=== PATIENT | female | born 2000 | race American Indian/Alaskan Native ===

== ENCOUNTER 2021-01-24 18:25 | Inpatient (IN) | payer OTHER ==
[2021-01-24] MEDS ORDERED: CARBOPROST TROMETHAMINE 250 MCG/1 ML INJ IM PRN (19:37)
[2021-01-24] MEDS ORDERED: METHYLERGONOVINE MALEATE 0.2 MG/ML VIAL IM PRN (19:37)
[2021-01-24] MEDS ORDERED: ACETAMINOPHEN 325 MG TAB PO PRN (19:37)
[2021-01-24] MEDS ORDERED: MINERAL OIL 30 ML ORAL LIQD PO PRN (19:37)
[2021-01-24] MEDS ORDERED: LIDOCAINE (2%) 20 MG/1 ML VIAL 20 ML MDV INFILTRATI ONE (19:37)
[2021-01-24] MEDS ORDERED: TERBUTALINE 1 MG/1 ML INJ SUB-Q PRN (19:37)
[2021-01-24] MEDS ORDERED: OXYTOCIN 10 UNIT/1 ML INJ IM PRN (19:37)
[2021-01-24] MEDS ORDERED: miSOPROStol 200 MCG TAB PR PRN (19:37)
[2021-01-24] MEDS ORDERED: fentaNYL 100 MCG/2 ML INJ IV PRN (19:37)
[2021-01-24] MEDS ORDERED: ePHEDrine SULFATE 50 MG/1 ML INJ IV PRN (19:37)
[2021-01-24] MEDS ORDERED: LOPERAMIDE 2 MG CAP PO PRN (19:37)
[2021-01-24] MEDS ORDERED: BUTORPHANOL 2 MG/1 ML INJ IV PRN ×2 (19:37)
[2021-01-24] MEDS ORDERED: AMPICILLIN/NS 2 GM/100 ML 2 GM/100 ML BAG IV ONE (19:37)
[2021-01-24] MEDS ORDERED: LACTATED RINGERS 1,000 ML IV SCH (19:45)
[2021-01-24] MEDS ORDERED: AZITHROMYCIN 250 MG TAB PO ONE (19:51)
--- NOTE | 2021-01-24 19:51 | History and Physical Report ---
History of Present Illness Date of examination: 01/24/21 Chief complaint: Labor History of present illness: EDC Confirmation: 02/14/2021 Past History : 1 Term Births: 0 Premature Births: 0 Living Children: 0 Para: 0 Mult. Births: 0 Prev : 0 Prev. attempt? 0 Aborta: 0 Elect. Ab: 0 Spont. 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 % Sun Exposure: rarely No Dietary Counseling Reason: pn yes Past Medical History Anesthesia Complications: negative Anemia: negative Autoimmune Disorder: negative Bleeding Disorder: negative Blood Transfusions: negative Breast Disease: negative Diabetes: negative Heart Disease: negative Hypertension: negative Hepatitis/Liver Disease: negative Kidney Disease/UTI: negative Neurologic/Epilepsy/Migraines: negative Phlebitis/Varicosities: negative Psychiatric: negative Pulmonary Disease/Asthma: negative Thyroid Disease: negative Hospitalizations: negative Surgery (Non-color developer): negative Abnormal PAP: negative KATERINA Exposure: negative Infertility: negative Uterine Anomaly: negative Uterine Surgery (not C/S): negative Other Gynecologic Problems: negative Social Hx: Patient is single Smoking History: Patient has never smoked. Infection History Hx of STD: + CT HIV Risk Eval: no Hepatitis B Risk Eval: low risk Personal hx. of genital herpes: no Partner hx. of genital herpes: no Rash, Viral, or Febrile illness since last LMP? no Varicella/Chicken Pox Status: Immunized TB Risk: no Genetic History Congenital Heart Defect: Mom: no Dad: unknown Rene Disease: Mom: no Dad: unknown Thalassemia Mom: no Dad: unknown Neural Tube Defect Mom: no Dad: unknown Down's Syndrome Mom: no Dad: unknown Chintan-Sachs Mom: no Dad: unknown Sickle Cell Disease/Trait Mom: yes Dad: unknown Comments: Patient has SCT Hemophilia Mom: no Dad: unknown Muscular Dystrophy Mom: no Dad: unknown Cystic Fibrosis Mom: no Dad: unknown [place] Chorea Mom: no Dad: unknown Mental Retardation Mom: no Dad: unknown Fragile X Mom: no Dad: unknown Other Genetic/Chromosomal Disorder Mom: no Dad: unknown Child w/other defect Mom: no Dad: unknown Enviromental Exposures Xray Exposure: no Medication, drug, or alcohol use since LMP: no Chemical/Other Exposure: no Exposure to Cat Liter: no Hx of Parvovirus (Fifth Disease): no Occupational Exposure to Children: none Active Medications (reviewed today): None Current Allergies (reviewed today): No known allergies Past History Past Medical History: other (see HPI) Past Surgical History: other (see HPI) 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 ) Family/Genetic History: other (see HPI) Social history: single, lives with family - Obstetrical History Expected Date of Delivery: 02/14/21 Actual Gestation: 37 Week(s) 0 Day(s) : 1 Para: 0 Hx # Term Pregnancies: 0 Number of Pregnancies: 0 Spontaneous Abortions: 0 Induced : 0 Number of Living Children: 0 Medications and Allergies Allergies Allergy/AdvReac Type Severity Reaction Status Date / Time No Known Allergies Allergy Verified 01/24/21 19:41 Active Meds: Active Medications Acetaminophen (Acetaminophen 325 Mg Tab) 650 mg PO Q4H PRN PRN Reason: Pain, Mild (1-3) Butorphanol Tartrate (Butorphanol 2 Mg/1 Ml Inj) 1 mg IV Q2H PRN PRN Reason: Pain, Moderate(4-6) LABOR PAIN Butorphanol Tartrate (Butorphanol 2 Mg/1 Ml Inj) 2 mg IV Q2H PRN PRN Reason: Pain , Severe (7-10) Carboprost Tromethamine (Carboprost Tromethamine 250 Mcg/1 Ml Inj) 250 mcg IM ONCE PRN PRN Reason: Uterine Bleeding Ephedrine Sulfate (Ephedrine Sulfate 50 Mg/1 Ml Inj) 10 mg IV Q2M PRN PRN Reason: Hypotension Fentanyl (Fentanyl 100 Mcg/2 Ml Inj) 100 mcg IV Q2H PRN PRN Reason: Pain,Severe (7-10) LABOR PAIN Oxytocin/Sodium Chloride (Pitocin/Ns 30 Unit/500ml) 30 units in 500 mls @ 2 mls/hr IV TITR RANDY; Protocol Lactated Ringer's (Lactated Ringers) 1,000 mls @ 125 mls/hr IV DIRECT RANDY Oxytocin/Sodium Chloride (Pitocin/Ns 30 Unit/500ml) 30 units in 500 mls @ 40 mls/hr IV TITR RANDY; Protocol Ampicillin Sodium (Ampicillin/Ns 1 Gm/50 Ml) 1 gm in 50 mls @ 100 mls/hr IV Q4H RANDY; Protocol Ampicillin Sodium (Ampicillin/Ns 2 Gm/100 Ml) 2 gm in 100 mls @ 100 mls/hr IV ONCE ONE; Protocol Stop: 01/24/21 20:36 Loperamide HCl (Loperamide 2 Mg Cap) 2 mg PO ONCE PRN PRN Reason: give with Hemabate Methylergonovine Maleate (Methylergonovine Maleate 0.2 Mg/Ml Vial) 0.2 mg IM ONCE PRN PRN Reason: Uterine Bleeding Mineral Oil (Mineral Oil 30 Ml Oral Liqd) 30 ml PO QHS PRN PRN Reason: Constipation Misoprostol (Misoprostol 200 Mcg Tab) 800 mcg LA ONCE PRN PRN Reason: Uterine Bleeding Oxytocin (Oxytocin 10 Unit/1 Ml Inj) 10 unit IM ONCE PRN PRN Reason: Uterine Bleeding Terbutaline Sulfate (Terbutaline 1 Mg/1 Ml Inj) 0.25 mg SUB-Q ONCE PRN PRN Reason: Hyperstimulation/Hypertonicity Review of Systems All systems: negative - Vital Signs Vital signs: Vital Signs Pulse Pulse Ox 127 H 97 01/24/21 19:07 01/24/21 19:07 Temp Pulse Resp BP Pulse Ox 99.1 F 109 H 18 143/92 97 01/24/21 19:10 01/24/21 19:32 01/24/21 19:10 01/24/21 19:20 01/24/21 19:32 - Physical Exam Breasts: Positive: normal Cardiovascular: Regular rate Lungs: Positive: Clear to auscultation, Normal air movement Abdomen: Positive: normal appearance, soft Genitourinary (Female): Positive: normal external genitalia, normal perenium Vulva: both: normal Vagina: Positive: normal moisture (SROM - clear flui) Uterus: Positive: normal size, normal contour Anus/Rectum: Positive: normal perianal skin Extremities: Positive: normal Deep Tendon Reflex Grade: Normal +2 - Obstetrical FHR: category 2 Uterine Contraction Monitor Mode: External Cervical Dilatation: 6.5 (per mechanic) Uterine Contraction Pattern: Regular Uterine Tone Measurement Phase: Contraction Uterine Contraction Intensity: Strong/Firm Results Result Diagrams: 01/24/21 19:50 All other labs normal. Assessment and Plan 20y/o @ 37+0 weeks presented in active labor, GBS +, pt desires unmedicated . - Patient Problems (1) Active labor at term Current Visit: Yes Status: Acute Plan to address problem: admission orders in EMR (2) 37 weeks gestation of Current Visit: Yes Status: Acute (3) Chlamydia Current Visit: Yes Status: Acute Plan to address problem: +CT 10/08/2020, RASHARD NEG 11/02, +CT again 12/28/2020 treated 01/02, no RASHARD at time of deliver. Pt states she complete medication. PO abx ordered if time before delivery. (4) GBS (group B Streptococcus carrier), +RV culture, currently Current Visit: Yes Status: Acute Plan to address problem: Ampicillin q4hrs until delivery
[2021-01-24] MEDS ORDERED: OXYTOCIN DRIP 30 UNITS/500 ML BAG IV SCH (20:00)
[2021-01-24 20:05] LABS: Hematocrit 28.6 % (30.3-42.9); Hemoglobin 8.9 gm/dl (10.1-14.3); Mean Corpuscular HGB Conc 31 % (30-34); Platelet Count 267 K/mm3 (140-440); Red Blood Count 4.42 M/mm3 (3.65-5.03); Red Cell Distribution Width 19.9 % (13.2-15.2)
[2021-01-24 20:11] LABS: Mean Corpuscular Volume 65 fl (79-97)
[2021-01-24] MEDS: OXYTOCIN DRIP 30 UNITS/500 ML BAG IV SCH ×2 (20:14→20:50)
--- NOTE | 2021-01-24 20:30 | Procedure Note ---
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 Placenta spontaneously and intact. Bilat periurethral lacs, no repair needed. Fundus firm at umbilicus and locha light. Apgars 8/9. All counts correct, Mother and baby LDR stable. - Infant A at 1 minute: 8 at 5 minutes: 9 Infant Gender: Male ("Tomyir" 6#10)
--- NOTE | 2021-01-24 20:49 | Event Note ---
Date: 01/24/21 reviewed blood pressures since admission all have been elevated 140's-160's/80-90's. while patient has no s/s pre-e, d/t elevated blood pressures will start mag sulfate 2gm/hr and draw Pre-e labs. Pt counseled on potential dx and need for intervention. All questions addressed.
[2021-01-24] MEDS ORDERED: MAGNESIUM HYDROXIDE (MOM) ORAL LIQD UDC PO PRN (21:30)
[2021-01-24] MEDS ORDERED: PROMETHAZINE 25 MG TAB PO PRN (21:30)
[2021-01-24] MEDS ORDERED: diphenhydrAMINE 25 MG CAP PO PRN (21:30)
[2021-01-24] MEDS ORDERED: WITCH HAZEL/ GLYCERIN PAD TP PRN (21:30)
[2021-01-24] MEDS ORDERED: ONDANSETRON 4 MG/2 ML INJ IV PRN (21:30)
[2021-01-24] MEDS ORDERED: BENZOCAINE/MENTHOL 20/0.5% TOP SPRAY 56 GM TP PRN (21:30)
[2021-01-24] MEDS ORDERED: LANOLIN/ZINC/DIMETHICONE (LANSINOH) 7 GM TP PRN (21:30)
[2021-01-24] MEDS ORDERED: MAGNESIUM SULFATE 4 GM/100 ML BAG IV ONE (21:34)
[2021-01-24] MEDS ORDERED: DOCUSATE SODIUM 100 MG CAP PO SCH (22:00)
[2021-01-24] MEDS ORDERED: IBUPROFEN 800 MG TAB PO SCH (22:00)
[2021-01-24] MEDS ORDERED: LACTATED RINGERS 1,000 ML ONE (22:08)
[2021-01-24] MEDS: MAGNESIUM SULFATE 40GM/1000ML 40 GM/1,000 ML BAG IV SCH (22:27)
[2021-01-24] MEDS ORDERED: AMPICILLIN/NS 1 GM/50 ML 1 GM/50 ML BAG IV SCH (23:45)
[2021-01-25] MEDS ORDERED: IBUPROFEN ORAL LIQD 100 MG/5 ML ORAL.LIQD PO SCH (03:00)
--- NOTE | 2021-01-25 08:04 | Progress Note ---
Assessment and Plan A: 20 y.o. s/p . On magnesium infusion d/t elevated blood pressures after delivery. Tachycardia. P: Continue to monitor blood pressures and heart rate. Continue with magnesium infusion. Due to be stopped @ 2007. Awaiting results of pre elcampsia labs. Continue to monitor for s/sx of worsening pre elcampsia. Continue with care on labor and delivery. Subjective - Subjective Date of service: 01/25/21 Principal diagnosis: s/p , magnesium infusion d/t elevated blood pressure after delivery Patient reports: appetite normal, pain well controlled : doing well Objective - Vital Signs Latest vital signs: Vital Signs Temp Pulse Resp BP BP Pulse Ox Pulse Ox 01/25/21 07:57 113 H 96 01/25/21 07:52 107 H 96 01/25/21 07:47 109 H 96 01/25/21 07:42 105 H 96 01/25/21 07:37 106 H 97 01/25/21 07:32 110 H 98 01/25/21 07:27 103 H 96 01/25/21 07:22 99 H 98 01/25/21 07:17 107 H 97 01/25/21 07:12 113 H 97 01/25/21 07:07 112 H 97 01/25/21 07:02 113 H 122/72 96 01/25/21 06:57 117 H 97 01/25/21 06:52 117 H 97 01/25/21 06:47 112 H 98 01/25/21 06:42 112 H 98 01/25/21 06:37 107 H 97 01/25/21 06:32 112 H 96 01/25/21 06:27 105 H 96 01/25/21 06:22 108 H 97 01/25/21 06:17 100 H 96 01/25/21 06:12 98 H 96 01/25/21 06:07 100 H 96 01/25/21 06:02 99 H 118/64 96 01/25/21 05:57 99 H 96 01/25/21 05:52 98 H 96 01/25/21 05:47 99 H 96 01/25/21 05:42 96 H 96 01/25/21 05:37 92 H 96 01/25/21 05:32 111 H 98 01/25/21 05:27 103 H 96 01/25/21 05:22 97 H 96 01/25/21 05:17 95 H 98 01/25/21 05:12 96 H 98 01/25/21 05:07 103 H 97 01/25/21 05:02 107 H 127/80 97 01/25/21 04:57 109 H 97 01/25/21 04:52 105 H 98 01/25/21 04:47 107 H 97 01/25/21 04:42 110 H 98 01/25/21 04:40 98.2 F 20 01/25/21 04:37 115 H 98 01/25/21 04:32 105 H 98 01/25/21 04:27 106 H 97 01/25/21 04:22 98 H 97 01/25/21 04:17 102 H 96 01/25/21 04:12 97 H 96 01/25/21 04:07 98 H 97 01/25/21 04:02 100 H 131/85 97 01/25/21 03:57 104 H 96 01/25/21 03:52 103 H 96 01/25/21 03:47 106 H 96 01/25/21 03:42 100 H 96 01/25/21 03:37 102 H 96 01/25/21 03:32 103 H 96 01/25/21 03:27 104 H 96 01/25/21 03:22 98 H 96 01/25/21 03:17 99 H 97 01/25/21 03:12 97 H 97 01/25/21 03:07 106 H 97 01/25/21 03:02 112 H 132/72 97 01/25/21 02:57 107 H 96 01/25/21 02:52 109 H 96 01/25/21 02:47 111 H 96 01/25/21 02:42 111 H 96 01/25/21 02:37 107 H 96 01/25/21 02:32 104 H 96 01/25/21 02:27 107 H 97 01/25/21 02:22 103 H 96 01/25/21 02:17 105 H 97 01/25/21 02:12 103 H 97 01/25/21 02:07 112 H 99 01/25/21 02:02 106 H 109/64 97 01/25/21 01:57 111 H 99 01/25/21 01:52 106 H 98 01/25/21 01:47 117 H 98 01/25/21 01:42 120 H 98 01/25/21 01:37 108 H 98 01/25/21 01:32 107 H 97 01/25/21 01:27 107 H 98 01/25/21 01:22 111 H 99 01/25/21 01:17 107 H 98 01/25/21 01:12 111 H 100 01/25/21 01:07 109 H 100 01/25/21 01:03 114 H 141/85 01/25/21 01:02 116 H 100 01/25/21 00:57 112 H 97 01/25/21 00:52 119 H 97 01/25/21 00:47 109 H 96 01/25/21 00:42 101 H 96 01/25/21 00:37 101 H 95 01/25/21 00:32 105 H 95 01/25/21 00:27 104 H 95 01/25/21 00:22 105 H 95 01/25/21 00:17 108 H 96 01/25/21 00:12 106 H 96 01/25/21 00:07 103 H 96 01/25/21 00:02 107 H 96 01/25/21 00:00 99.1 F 20 01/24/21 23:57 103 H 97 01/24/21 23:53 102 H 137/85 01/24/21 23:52 107 H 98 01/24/21 23:47 103 H 98 01/24/21 23:42 98 H 98 01/24/21 23:38 96 H 136/85 01/24/21 23:37 98 H 97 01/24/21 23:32 113 H 97 01/24/21 23:28 98.0 F 20 01/24/21 23:27 106 H 97 01/24/21 23:23 114 H 134/87 01/24/21 23:22 109 H 99 01/24/21 23:17 100 H 99 01/24/21 23:12 106 H 98 01/24/21 23:08 103 H 138/88 01/24/21 23:07 107 H 98 01/24/21 23:02 93 H 99 01/24/21 22:57 106 H 98 01/24/21 22:53 84 143/89 01/24/21 22:52 96 H 98 01/24/21 22:47 94 H 98 11/18/21 22:42 99 H 98 11/18/21 22:38 83 140/87 11/18/21 22:37 87 100 11/18/21 22:32 100 H 99 18/21 22:27 92 H 98 11/18/21 22:23 94 H 146/86 18/21 22:22 100 H 99 1118/21 22:17 96 H 98 18/21 22:12 98 H 98 18/21 22:08 86 148/83 18/21 22:07 91 H 98 18/21 22:02 81 100 18/21 21:57 99 H 99 18/21 21:53 100 H 147/81 18/21 21:52 90 99 18/21 21:50 99 18/21 21:47 89 99 18/21 21:42 96 H 99 18/21 21:38 92 H 141/82 18/21 21:37 92 H 99 18/21 21:32 102 H 99 18/21 21:27 95 H 99 18/21 21:24 110 H 151/91 18/21 21:22 107 H 99 18/21 21:17 103 H 99 18/21 21:12 89 98 18/21 21:08 93 H 138/84 18/21 21:07 110 H 99 18/21 21:02 97 H 98 18/21 21:00 98 18/21 20:57 101 H 98 18/21 20:53 106 H 144/84 18/21 20:52 100 H 98 18/21 20:48 106 H 142/83 18/21 20:47 105 H 99 1118/21 20:42 110 H 98 1118/21 20:38 115 H 149/81 18/21 20:37 115 H 99 11/18/21 20:32 112 H 100 11/18/21 20:27 114 H 99 /18/21 20:26 114 H 144/71 /18/21 20:23 125 H 145/79 18/21 20:22 115 H 99 18/21 20:17 117 H 99 11/18/21 20:12 100 H 97 01/24/21 20:10 113 H 144/82 01/24/21 20:09 98.1 F 18 01/24/21 20:08 105 H 165/89 01/24/21 20:07 116 H 99 01/24/21 20:02 105 H 100 01/24/21 19:57 98 H 99 01/24/21 19:52 98 01/24/21 19:32 109 H 97 01/24/21 19:27 107 H 98 01/24/21 19:22 124 H 99 01/24/21 19:20 114 H 143/92 01/24/21 19:17 109 H 96 01/24/21 19:12 116 H 97 01/24/21 19:10 99.1 F 114 H 18 149/89 149/85 97 01/24/21 19:07 127 H 97 Intake and Output 01/24/21 01/25/21 01/25/21 22:59 06:59 14:59 Intake Total 510 Output Total 2049 Balance 510 -2049 Intake: IV 510 Forearm 10 PITOCin/NS 30 UNIT/500ML 500 30 units In 500 ml @ 40 mls/hr IV TITR RANDY Rx#: [id number] Output: Urine 2049 Indwelling Catheter 2049 Other: Total, Output Amount 700 Weight 130 lb Estimated Blood Loss 150 - Exam Narrative Exam: Pt denies TRIPLETT, blurred vision, spots before her eyes, chest pain, shortness of breath, and upper abdominal pain. Blood pressure ranges have been 109-140's/60-80's. Tachycardia noted. Will continue to monitor heart rate. Pre Eclampsia labs ordered. Breasts: Present: deferred Cardiovascular: Present: Normal S1, Normal S2 Lungs: Present: Clear to auscultation Abdomen: Present: normal appearance, soft Extremities: Present: normal Deep Tendon Reflex Grade: Normal +2 - Labs Labs: Abnormal lab results 01/24/21 Range/Units 19:50 Hgb 8.9 L (10.1-14.3) gm/dl Hct 28.6 L (30.3-42.9) % MCV 65 L (79-97) fl MCH 20 L (28-32) pg RDW 19.9 H (13.2-15.2) %
[2021-01-25] MEDS ORDERED: PRENATAL VIT27-FE FUMARATE-FOLIC ACID VIT TAB PO SCH (10:00)
[2021-01-25 11:11] LABS: Alanine Aminotransferase 12 units/L (7-56); Uric Acid 3.3 mg/dL (3.5-7.6)
[2021-01-25 11:29] LABS: Hematocrit 28.7 % (30.3-42.9); Hemoglobin 8.9 gm/dl (10.1-14.3); Mean Corpuscular HGB Conc 31 % (30-34); Mean Corpuscular Volume 65 fl (79-97); Platelet Count 255 K/mm3 (140-440); Red Blood Count 4.39 M/mm3 (3.65-5.03)
[2021-01-25] MEDS ORDERED: LACTATED RINGERS 1,000 ML ONE (11:48)
[2021-01-25] MEDS: IBUPROFEN 800 MG TAB PO SCH ×2 (11:59→23:00)
[2021-01-25] MEDS ORDERED: LACTATED RINGERS 1,000 ML IV SCH (12:30)
[2021-01-25] MEDS ORDERED: FERROUS SULFATE 325 MG TAB PO SCH (14:00)
[2021-01-25] MEDS: MAGNESIUM SULFATE 40GM/1000ML 40 GM/1,000 ML BAG IV SCH (17:51)
[2021-01-26 00:04] LABS: Bacteria,Urine 1+ /HPF (Negative); Bilirubin,Urine NEG (Negative); Blood,Urine LG (Negative); Color,Urine Straw (Yellow); Hyaline Casts,Urine 2 /LPF; Mucus,Urine FEW /HPF; Protein,Urine <15 mg/dL mg/dL (Negative); Urobilinogen,Urine < 2.0 mg/dL (<2.0)
[2021-01-26 00:05] LABS: RBC,Urine > 182.0 /HPF (0.0-6.0)
--- NOTE | 2021-01-26 11:11 | Discharge Summary ---
Providers - Providers Date of Admission: 01/24/21 20:42 Date of discharge: 01/26/21 Attending physician: SKY ESCOBEDO MD Primary care physician: SKY ESCOBEDO MD Hospitalization Reason for admission: active labor Delivery: Procedure details: see delivery note Episiotomy: other (see delivery note) Laceration: other (see delivery note) Other procedures: none complications: other (elevated blood pressures treated with magnesium sulfate x 24hrs) Discharge diagnosis: IUP at term delivered baby: male Hospital course: Pt admitted in active labor and delivered via . PP and intrapartum course complicated by elevated blood pressures for which she was treated with magnesium sulfate for 24 hours. Pt blood pressures have remained stable and she is currently not on any bp medications. Condition at discharge: Good Disposition: 01 HOME / SELF CARE / HOMELESS - Discharge Diagnoses (1) Elevated blood-pressure reading without diagnosis of hypertension Status: Acute (2) (normal spontaneous vaginal delivery) Status: Acute Plan - Discharge Medications Prescriptions: Lidocain2.5%/Prilocai2.5% [Emla] 1 applic TP ONCE #1 tube - Provider Discharge Summary Activity: routine, no sex for 6 weeks, no heavy lifting 4 weeks Diet: routine Instructions: routine Additional instructions: [] Smoking cessation referral if applicable(refer to patient education folder for contact #) [] Refer to [facility] Booklet Call your doctor immediately for: * Fever > 100.5 * Heavy vaginal bleeding ( >1 pad per hour) * Severe persistent headache * Shortness of breath * Reddened, hot, painful area to leg or breast * Drainage or odor from incision. * Keep incision clean and dry at all times and follow doctor's instructions regarding bathing/showering CONGRATULATIONS!!! CALL THE OFFICE TO SCHEDULE CIRCUMCISION FOR YOUR BABY BOY. - Follow up plan Follow up: SKY ESCOBEDO MD [Primary Care Provider] - 7 Days
[2021-01-26 17:57] VITALS: BP 145/87
== END 2021-01-26 18:40 | disposition home or self-care (01) | DRG 774 ==
LOC: TRG 18:25 → APU 18:26 → TRG 19:37 → LD 19:38 → OBSVTOIN 20:42 → OB 01-25 21:57
PROVIDERS: ADMIT Student in an Organized Health Care Education/Training Program; ATTEND Student in an Organized Health Care Education/Training Program
PROC: 10E0XZZ Delivery of Products of Conception, External Approach (ICD-10-PCS; principal; 2021-01-24)
DX: O99.824 Streptococcus B carrier state complicating childbirth (principal); O98.82 Other maternal infectious and parasitic diseases complicating childbirth; O69.81X0 Labor and delivery complicated by cord around neck, without compression, not applicable or unspecified; O71.82 Other specified trauma to perineum and vulva; O99.12 Other diseases of the blood and blood-forming organs and certain disorders involving the immune mechanism complicating childbirth; Z3A.37 37 weeks gestation of pregnancy; Z37.0 Single live birth; Z20.822 Contact with and (suspected) exposure to COVID-19
CPT/HCPCS: 36415; 59025; 81001; 82565; 83615; 83735; 84450; 84460; 84550; 85027; 86592; 86850; 86900; 86901; 87086; G0378; J3490; J0290; J2590; J3475; J7120; U0003